=== PATIENT | female | born 1960 | race Caucasian/White ===

== ENCOUNTER 2023-11-28 10:54 | Inpatient (IN) | payer MEDICAID ==
[~2023-11-28] VITALS: Ht 154.9 cm; Wt 70.0 kg
[2023-11-28 11:40] LABS: BASOPHILS % 1.2 % (0.0-2.0); EOSINOPHILS % 1.9 % (0.0-5.0); HEMATOCRIT. 35.7 % (36.0-48.0); LYMPHOCYTES % 23.9 % (20.0-50.0); MEAN CORPUSCULAR HEMOGLOBIN 28.7 pg (28.0-32.0); MEAN CORPUSCULAR HGB CONC 33.6 g/dL (31.0-37.0); MEAN CORPUSCULAR VOLUME 85.4 fL (81.0-99.0); MEAN PLATELET VOLUME 9.5 fl (7.4-10.4); MONOCYTES % 5.9 % (2.0-8.0); NEUTROPHILS % 67.1 % (40.0-76.0); PLATELET 231 x1000/uL (130-400); RED BLOOD CELL COUNT 4.18 mill/uL (4.2-5.4); RED CELL DISTRIBUTION WIDTH 13.2 % (11.6-14.6); WHITE BLOOD COUNT 5.1 x1000/uL (4.5-11.0)
[2023-11-28 12:05] LABS: ALANINE AMINOTRANSFERASE < 7 IU/L (10-49); ALBUMIN 4.2 g/dL (3.2-4.8); ASPARTATE AMINOTRANSFERASE 13 IU/L (<34); BILIRUBIN TOTAL 0.5 mg/dL (0.1-1.0); CALCIUM 9.1 mg/dL (8.7-10.4); CARBON DIOXIDE 30 mEq/L (21-32); CHLORIDE 101 mEq/L (98-107); GLUCOSE 246 mg/dL (70-105); POTASSIUM 4.2 mEq/L (3.5-5.1); PROTEIN TOTAL 7.1 g/dL (6.0-8.3); SODIUM 136 mEq/L (136-145); UREA NITROGEN BLOOD 29 mg/dL (9-23)
[2023-11-28 12:08] LABS: TROPONIN I HIGH SENSITIVITY 116 ng/L (3.0-34)
[2023-11-28] MEDS ORDERED: ASPIRIN 325MG EC TABLET PO ONE (12:15)
[2023-11-28] MEDS: ASPIRIN 325MG EC TABLET PO NR (14:00)
[2023-11-28 14:35] LABS: INR 0.9; PROTHROMBIN TIME 10.3 sec (9.6-11.0)
[2023-11-28 14:39] LABS: CLARITY URINE CLEAR (CLEAR); COLOR URINE YELLOW (YELLOW); GLUCOSE URINE TRACE (NEGATIVE); KETONES URINE TRACE (NEGATIVE); LEUKOCYTE ESTERASE URINE 1+ (NEGATIVE); NITRITE URINE NEGATIVE (NEGATIVE); OCCULT BLOOD URINE NEGATIVE (NEGATIVE); PH URINE 5.5 (4.5-8.0); PROTEIN URINE 3+ (NEGATIVE); SPECIFIC GRAVITY URINE 1.018 (1.005-1.030)
[2023-11-28 14:52] LABS: FINE GRANULAR CASTS URINE 0-5 /lpf; HYALINE CASTS URINE 0-5 /lpf
[2023-11-28 14:53] LABS: BACTERIA URINE TRACE; SQUAMOUS EPITHELIAL CELL URINE 2+ /lpf (RARE/1+)
[2023-11-28 14:54] LABS: MUCUS URINE 1+ /lpf (< = 2+)
[2023-11-28] MEDS: ENOXAPARIN 80MG/0.8ML SYR SUBCUT SCH (15:43)
[2023-11-28 20:00] VITALS: BP 178/66; PULSE 62; RESP 16; TEMP 98.6
[2023-11-28] MEDS ORDERED: GLIP10TA10 PO (20:41)
[2023-11-28] MEDS ORDERED: vitamin d PO (20:41)
[2023-11-28] MEDS ORDERED: METF-873 MT (20:41)
[2023-11-28] MEDS ORDERED: NITR-87 MT (20:41)
[2023-11-28] MEDS ORDERED: LISI10TA26 PO (20:41)
[2023-11-28] MEDS ORDERED: ATOR10TA69 PO (20:41)
[2023-11-28] MEDS ORDERED: DEXTROSE 50% WATER 50ML SYRINGE IV PRN (22:00)
[2023-11-28] MEDS: ASPIRIN 81MG TABLET PO SCH (22:11)
[2023-11-28] MEDS: LISINOPRIL 10MG TABLET PO SCH (22:11)
[2023-11-28] MEDS: ATORVASTATIN CALCIUM 40MG TABLET PO SCH (22:11)
[2023-11-28] MEDS: HYDROCODONE/ACETAMINOPHEN 5/325MG TABLET PO PRN (22:14)
[2023-11-28] MEDS: BLOOD SUGAR DIAGNOSTIC STRIP TEST SCH (22:15)
[2023-11-28] MEDS: INSULIN LISPRO 100 UNITS/ML SUBCUT SCH (22:24)
[2023-11-29] VITALS (12 sets, daily range): BP systolic 114–197; BP diastolic 55–102; PULSE 58–85; RESP 14–18; TEMP 98–98.9
[2023-11-29] MEDS: CLONIDINE 0.1MG TABLET PO PRN (00:27)
[2023-11-29] MEDS: ONDANSETRON HCL 4MG/2ML INJ IV PRN (00:27)
[2023-11-29] MEDS: PANTOPRAZOLE 40MG DR TABLET PO SCH (06:14)
[2023-11-29 06:23] LABS: EOSINOPHILS % 1.6 % (0.0-5.0); HEMATOCRIT. 32.5 % (36.0-48.0); LYMPHOCYTES % 24.6 % (20.0-50.0); MEAN CORPUSCULAR HEMOGLOBIN 28.7 pg (28.0-32.0); MEAN CORPUSCULAR VOLUME 84.4 fL (81.0-99.0); MEAN PLATELET VOLUME 9.8 fl (7.4-10.4); MONOCYTES % 5.5 % (2.0-8.0); NEUTROPHILS % 67.3 % (40.0-76.0); PLATELET 190 x1000/uL (130-400); RED BLOOD CELL COUNT 3.85 mill/uL (4.2-5.4); RED CELL DISTRIBUTION WIDTH 13.5 % (11.6-14.6); WHITE BLOOD COUNT 5.2 x1000/uL (4.5-11.0)
[2023-11-29 06:51] LABS: CALCIUM 8.3 mg/dL (8.7-10.4)
[2023-11-29 07:24] LABS: HEPATITIS B SURFACE ANTIGEN NEGATIVE (Negative); HEPATITIS C AB NON REACTIVE (Neg) (Negative)
[2023-11-29] MEDS: METFORMIN HCL 500MG TABLET PO SCH (08:19)
[2023-11-29] MEDS: METOPROLOL TARTRATE 25MG TABLET PO SCH (08:20)
[2023-11-29] MEDS: ENOXAPARIN 40MG/0.4ML SYR SUBCUT SCH (08:21)
[2023-11-29] MEDS: HYDRALAZINE HCL 100MG TABLET PO SCH (23:48)
[2023-11-30] VITALS (7 sets, daily range): BP systolic 88–190; BP diastolic 46–91; PULSE 58–91; RESP 9–20; TEMP 97.8–98.2; O2SAT 98
[2023-11-30] MEDS: LISINOPRIL 20MG TABLET PO SCH (09:16)
[2023-11-30] MEDS ORDERED: HYDR50TA40 MT (12:14)
[2023-11-30] MEDS ORDERED: INSU100I28 SQ (12:14)
[2023-11-30] MEDS ORDERED: LISI40TA13 MT (12:14)
[2023-12-01] VITALS: BP 117/52; PULSE 73; RESP 10; TEMP 97.6
[2023-12-01 04:00] VITALS: BP 144/64; PULSE 73; RESP 14; TEMP 97.8
[2023-12-01 08:00] VITALS: BP 112/93; PULSE 71; RESP 16; TEMP 97.7
[2023-12-01 08:48] VITALS: PULSE 75
== END 2023-12-01 11:20 | disposition home health service (06) | DRG 48 ==
LOC: ER 12:32 → EDBEDREQ 14:52 → 3WST 19:34
PROVIDERS: ADMIT Internal Medicine; ATTEND Internal Medicine
DX: G90.8 Other disorders of autonomic nervous system (principal); E11.65 Type 2 diabetes mellitus with hyperglycemia; I10 Essential (primary) hypertension; E78.5 Hyperlipidemia, unspecified; I95.1 Orthostatic hypotension; Z86.73 Personal history of transient ischemic attack (TIA), and cerebral infarction without residual deficits
CPT/HCPCS: 36415; 71045; 80048; 80053; 80061; 81003; 82962; 83036; 84484; 85025; 86705; 87340; 93005; 93306; 99285; J1650; J1815; J2405

== ENCOUNTER 2024-01-02 20:31 | Inpatient (IN) | payer MEDICAID ==
[~2024-01-02] VITALS: Ht 160 cm; Wt 64.9 kg
[~2024-01-02 20:31] MED LIST: ATOR10TA69 PO; GLIP10TA10 PO; HYDR50TA40 MT; INSU100I28 SQ; LISI40TA13 MT; METF-873 MT; vitamin d PO
[2024-01-02 22:47] LABS: CALCIUM 9.3 mg/dL (8.7-10.4); POTASSIUM 4.5 mEq/L (3.5-5.1)
[2024-01-02 22:50] LABS: CREATININE 1.2 mg/dL (0.6-1.0)
[2024-01-03] MEDS: HYDRALAZINE 20MG/ML VIAL IV ONE (00:04)
[2024-01-03 01:13] LABS: BASOPHILS % 1.3 % (0.0-2.0); EOSINOPHILS % 2.1 % (0.0-5.0); HEMATOCRIT. 32.3 % (36.0-48.0); LYMPHOCYTES % 33.7 % (20.0-50.0); MEAN CORPUSCULAR HEMOGLOBIN 28.5 pg (28.0-32.0); MEAN CORPUSCULAR HGB CONC 34.1 g/dL (31.0-37.0); MEAN CORPUSCULAR VOLUME 83.5 fL (81.0-99.0); MEAN PLATELET VOLUME 9.5 fl (7.4-10.4); MONOCYTES % 8.6 % (2.0-8.0); NEUTROPHILS % 54.3 % (40.0-76.0); PLATELET 285 x1000/uL (130-400); RED BLOOD CELL COUNT 3.86 mill/uL (4.2-5.4); RED CELL DISTRIBUTION WIDTH 13.4 % (11.6-14.6); WHITE BLOOD COUNT 4.9 x1000/uL (4.5-11.0)
[2024-01-03 01:34] LABS: ALANINE AMINOTRANSFERASE 8 IU/L (10-49); ASPARTATE AMINOTRANSFERASE 12 IU/L (<34); BILIRUBIN TOTAL 0.4 mg/dL (0.1-1.0); PROTEIN TOTAL 7.2 g/dL (6.0-8.3); T4 FREE 1.37 ng/dL (0.89-1.76); THYROID STIMULATING HORMONE 3.97 uIU/mL (0.55-4.78)
[2024-01-03 01:36] LABS: BILIRUBIN DIRECT < 0.1 mg/dL (<=3.0)
[2024-01-03 01:39] LABS: TROPONIN I HIGH SENSITIVITY 105 ng/L (3.0-34)
[2024-01-03] MEDS: ASPIRIN 81MG TABLET PO ONE (01:58)
[2024-01-03] MEDS: SULFAMETHOXAZOLE/TRIMETHOPRIM 800/160MG TABLET PO ONE (01:58)
[2024-01-03] MEDS: ACETAMINOPHEN 325MG TABLET PO ONE (02:00)
[2024-01-03 02:33] LABS: CLARITY URINE CLOUDY (CLEAR); COLOR URINE YELLOW (YELLOW); GLUCOSE URINE 2+ (NEGATIVE); KETONES URINE NEGATIVE (NEGATIVE); LEUKOCYTE ESTERASE URINE TRACE (NEGATIVE); NITRITE URINE NEGATIVE (NEGATIVE); OCCULT BLOOD URINE NEGATIVE (NEGATIVE); PH URINE 5.5 (4.5-8.0); PROTEIN URINE 3+ (NEGATIVE); SPECIFIC GRAVITY URINE 1.014 (1.005-1.030); UROBILINOGEN URINE 0.2 E.U./dL (0.2-1.0)
[2024-01-03] MEDS ORDERED: LABETALOL HCL VIAL 20 MG/4 ML VIAL IV ONE (02:45)
[2024-01-03] MEDS: ASPIRIN 81MG EC TABLET PO ONE (03:01)
[2024-01-03] MEDS: LABETALOL 5MG/ML SYR 20 MG/4 ML SYRINGE IV NR (03:24)
[2024-01-03 04:21] LABS: BACTERIA URINE 3+; RBC URINE NONE SEEN /hpf (0-2); SQUAMOUS EPITHELIAL CELL URINE 1+ /lpf (RARE/1+)
[2024-01-03 05:06] LABS: TROPONIN I HIGH SENSITIVITY 105 ng/L (3.0-34)
[2024-01-03 08:10] VITALS: BP 184/84; PULSE 72; RESP 20; TEMP 97.7
[2024-01-03] MEDS ORDERED: DEXTROSE 50% WATER 50ML SYRINGE IV PRN (08:45)
[2024-01-03] MEDS: AMLODIPINE 10MG TABLET PO SCH (09:33)
[2024-01-03] MEDS: BLOOD SUGAR DIAGNOSTIC STRIP TEST SCH (11:18)
[2024-01-03] MEDS: CEFTRIAXONE 1GM/50ML 50 ML IV SCH (11:26)
[2024-01-03] MEDS: INSULIN GLARGINE 100 UNITS/ML SUBCUT SCH (11:33)
[2024-01-03] MEDS: INSULIN LISPRO 100 UNITS/ML SUBCUT SCH (11:44)
[2024-01-03 12:00] VITALS: BP 164/60; PULSE 71; RESP 18; TEMP 97.1
[2024-01-03 12:46] VITALS: BP 184/84; PULSE 72; RESP 18; TEMP 97.7
[2024-01-03] MEDS ORDERED: METF-414 PO (13:03)
[2024-01-03] MEDS ORDERED: GLIP5TAB22 PO (13:03)
[2024-01-03] MEDS ORDERED: LISI10TA26 PO (13:03)
[2024-01-03] MEDS ORDERED: HYDRALAZINE HCL 50MG TABLET PO ONE (13:45)
[2024-01-03] MEDS: HYDRALAZINE HCL 50MG TABLET PO SCH (14:06)
[2024-01-03] MEDS: ENOXAPARIN 40MG/0.4ML SYR SUBCUT SCH (15:10)
[2024-01-03 16:00] VITALS: BP 137/90; PULSE 89; RESP 20; TEMP 97.7
[2024-01-03 20:00] VITALS: BP 177/69; PULSE 71; RESP 16; TEMP 97.1
[2024-01-03] MEDS: ONDANSETRON HCL 4MG/2ML INJ IV PRN (22:45)
[2024-01-04] VITALS: BP 129/66; PULSE 68; RESP 16; TEMP 97.1
[2024-01-04 04:00] VITALS: BP 118/55; PULSE 76; RESP 18; TEMP 97.1
[2024-01-04 08:00] VITALS: BP 146/67; PULSE 20; RESP 20; TEMP 97.9
[2024-01-04 12:00] VITALS: BP 144/60; PULSE 73; RESP 17; TEMP 98.1
[2024-01-04 16:00] VITALS: BP 189/91; PULSE 89; RESP 18; TEMP 97.7
[2024-01-04] MEDS ORDERED: LANTUSUD SUBCUT (16:08)
[2024-01-04] MEDS ORDERED: AMLO10TA80 MT (16:08)
[2024-01-04 19:14] VITALS: BP 131/59; PULSE 86; TEMP 97.7; O2SAT 98
== END 2024-01-04 19:54 | disposition home or self-care (01) | DRG 199 ==
LOC: ER 20:31 → 8WST 01-03 02:28 → EDBEDREQTM 01-03 02:37 → EDBEDREQ 01-03 02:37
PROVIDERS: ADMIT Internal Medicine; ATTEND Internal Medicine
DX: I16.0 Hypertensive urgency (principal); N17.0 Acute kidney failure with tubular necrosis; E11.65 Type 2 diabetes mellitus with hyperglycemia; M79.674 Pain in right toe(s); I10 Essential (primary) hypertension; L08.9 Local infection of the skin and subcutaneous tissue, unspecified; Z88.0 Allergy status to penicillin; E78.00 Pure hypercholesterolemia, unspecified
CPT/HCPCS: 36415; 71045; 73630; 80048; 80076; 81003; 82962; 83036; 84439; 84443; 84484; 85025; 93005; 99285; J0360; J0696; J1650; J1815; J2405; J3490

== ENCOUNTER 2024-09-12 16:15 | Emergency (ER) | payer MEDICAID ==
[~2024-09-12] VITALS: Ht 157.5 cm; Wt 72.0 kg
[~2024-09-12 16:15] MED LIST changes: +AMLO10TA80 MT; -GLIP10TA10 PO; +GLIP5TAB22 PO; +LANTUSUD SUBCUT; +LISI10TA26 PO; -LISI40TA13 MT; +METF-414 PO; -METF-873 MT
[2024-09-12 16:16] VITALS: O2SAT 97
[2024-09-12 16:38] VITALS: TEMP 98.3; O2SAT 100
[2024-09-12 19:19] LABS: CHLORIDE 107 mEq/L (98-107); POTASSIUM 4.5 mEq/L (3.5-5.1); SODIUM 140 mEq/L (136-145)
[2024-09-12 19:20] LABS: CALCIUM 8.6 mg/dL (8.7-10.4); CARBON DIOXIDE 26 mEq/L (21-32)
[2024-09-12 19:21] LABS: BASOPHILS % 1.4 % (0.0-2.0); EOSINOPHILS % 1.9 % (0.0-5.0); HEMOGLOBIN. 9.3 g/dL (12.0-16.0); LYMPHOCYTES % 20.6 % (20.0-50.0); MEAN CORPUSCULAR HEMOGLOBIN 28.1 pg (28.0-32.0); MEAN CORPUSCULAR HGB CONC 33.3 g/dL (31.0-37.0); MEAN CORPUSCULAR VOLUME 84.4 fL (81.0-99.0); MEAN PLATELET VOLUME 9.1 fl (7.4-10.4); MONOCYTES % 7.8 % (2.0-8.0); NEUTROPHILS % 68.3 % (40.0-76.0); PLATELET 211 x1000/uL (130-400); RED BLOOD CELL COUNT 3.32 mill/uL (4.2-5.4); RED CELL DISTRIBUTION WIDTH 16.1 % (11.6-14.6); WHITE BLOOD COUNT 4.3 x1000/uL (4.5-11.0)
[2024-09-12 19:25] LABS: GLUCOSE 178 mg/dL (70-105); UREA NITROGEN BLOOD 55 mg/dL (9-23)
[2024-09-12 19:38] LABS: TROPONIN I HIGH SENSITIVITY 273 ng/L (3.0-34)
[2024-09-12] MEDS ORDERED: FUROSEMIDE 40MG/4ML VIAL IVP ONE (20:00)
[2024-09-12 23:46] VITALS: BP 227/94; PULSE 66; RESP 20
[2024-09-13] MEDS: HYDRALAZINE 20MG/ML VIAL IV ONE (00:03)
[2024-09-13] MEDS: FUROSEMIDE 40MG/4ML VIAL IVP NR (00:12)
== END 2024-09-13 00:22 | disposition short-term general hospital (02) ==
LOC: ER 16:15
DX: I11.0 Hypertensive heart disease with heart failure (principal); I50.9 Heart failure, unspecified; I13.0 Hypertensive heart and chronic kidney disease with heart failure and stage 1 through stage 4 chronic kidney disease, or unspecified chronic kidney disease; E11.22 Type 2 diabetes mellitus with diabetic chronic kidney disease; N18.9 Chronic kidney disease, unspecified; N17.9 Acute kidney failure, unspecified; I21.4 Non-ST elevation (NSTEMI) myocardial infarction; E78.00 Pure hypercholesterolemia, unspecified; D64.9 Anemia, unspecified; E11.65 Type 2 diabetes mellitus with hyperglycemia; E87.8 Other disorders of electrolyte and fluid balance, not elsewhere classified; Z79.899 Other long term (current) drug therapy; Z79.84 Long term (current) use of oral hypoglycemic drugs; Z79.4 Long term (current) use of insulin; Z88.0 Allergy status to penicillin; Z96.659 Presence of unspecified artificial knee joint
CPT/HCPCS: 80048; 85025; 84484; 36415; 71045; 93005; 99291; 96374; 96375; J0360; Z7610; J1940